=== PATIENT | female | born 1990 | race African-American/Black ===

== ENCOUNTER 2018-08-06 16:48 | Emergency (ER) | payer SELFPAY ==
[~2018-08-06] VITALS: Ht 170.2 cm; Wt 50.0 kg
[2018-08-06 17:10] VITALS: Ht 170.2 cm; Wt 50.0 kg
[2018-08-06] MEDS ORDERED: LORAZEPAM 2 MG INJ IM STA (17:25)
--- NOTE | 2018-08-06 18:21 | ERD ---
ER Documentation Chief Complaint Chief Complaint PT BIB RA with c/o bizzare behavior, possible mushroom use this weekend. HPI 27-year-old woman brought in by EMS from home for bizarre behavior, mutism, and not responding appropriately to family members' questions. It seems patient used mushrooms a few days ago but she also has a history of psychiatric illness. She has had no trauma, no fevers or chills, no vomiting. Patient transported here by EMS without further complications. ROS All systems reviewed and are negative except as per history of present illness. PMhx/Soc Medical and Surgical Hx: Unable to obtain Hx Alcohol Use: No Hx Substance Use: Yes (mushrooms) Hx Tobacco Use: No Smoking Status: Never smoker Physical Exam Vitals Vital Signs Date Temp Pulse Resp B/P (MAP) Pulse Ox O2 O2 Flow FiO2 Time Delivery Rate 08/06/18 97.9 98 22 104/77 100 17:10 (86) Physical Exam Const: Well-developed will nourished woman, nontoxic in appearance, afebrile Head: Atraumatic Eyes: Normal Conjunctiva ENT: Normal External Ears, Nose and Mouth. Neck: Full range of motion. No meningismus. Resp: Clear to auscultation bilaterally Cardio: Regular rate and rhythm, no murmurs Abd: Soft, non tender, non distended. No guarding or rigidity, no masses Skin: No petechiae or rashes Back: No midline or flank tenderness Ext: No cyanosis, or edema Neur: Patient is alert and awake and moves all her extremities without difficulty, eyes are open but she exhibits mutism and is refusing to answer questions Psych: Flat affect Result Diagram: 08/06/18 1734 08/06/18 1734 Results 24 hrs Laboratory Tests Test 08/06/18 17:34 White Blood Count 6.1 10^3/ul Red Blood Count 4.36 10^6/ul Hemoglobin 13.0 g/dl Hematocrit 39.7 % Mean Corpuscular Volume 91.1 fl Mean Corpuscular Hemoglobin 29.8 pg Mean Corpuscular Hemoglobin Concent 32.7 g/dl Red Cell Distribution Width 12.2 % Platelet Count 260 10^3/UL Mean Platelet Volume 10.3 fl Immature Granulocytes % 0.200 % Neutrophils % 52.6 % Lymphocytes % 36.6 % Monocytes % 6.7 % Eosinophils % 2.8 % Basophils % 1.1 % Nucleated Red Blood Cells % 0.0 /100WBC Immature Granulocytes # 0.010 10^3/ul Neutrophils # 3.2 10^3/ul Lymphocytes # 2.2 10^3/ul Monocytes # 0.4 10^3/ul Eosinophils # 0.2 10^3/ul Basophils # 0.1 10^3/ul Nucleated Red Blood Cells # 0.0 10^3/ul Urine Color DORYS Urine Clarity CLEAR Urine pH 5.0 Urine Specific [place] 1.031 Urine Ketones 1+ mg/dL Urine Nitrite NEGATIVE mg/dL Urine Bilirubin NEGATIVE mg/dL Urine Urobilinogen 2+ mg/dL Urine Leukocyte Esterase NEGATIVE Aisha/ul Urine Hemoglobin NEGATIVE mg/dL Urine Glucose NEGATIVE mg/dL Urine Total Protein NEGATIVE mg/dl Sodium Level 144 mmol/L Potassium Level 3.5 mmol/L Chloride Level 107 mmol/L Carbon Dioxide Level 27 mmol/L Anion Gap 10 Blood Urea Nitrogen 14 mg/dl Creatinine 1.16 mg/dl Est Glomerular Filtrat Rate mL/min > 60 mL/min Glucose Level 82 mg/dl Calcium Level 9.9 mg/dl Total Bilirubin 0.4 mg/dl Direct Bilirubin 0.00 mg/dl Indirect Bilirubin 0.4 mg/dl Aspartate Amino Transf (AST/SGOT) 31 IU/L Alanine Aminotransferase (ALT/SGPT) 15 IU/L Alkaline Phosphatase 65 IU/L Total Protein 7.9 g/dl Albumin 4.3 g/dl Globulin 3.60 g/dl Albumin/Globulin Ratio 1.19 Serum HCG, Qualitative NEGATIVE Salicylates Level 2.0 mg/dl Acetaminophen Level < 10.0 ug/ml Ethyl Alcohol Level < 10.0 mg/dl Current Medications Medications Dose Sig/Jero Start Time Status Last (Trade) Ordered Route PRN Stop Time Admin Dose Reason Admin Lorazepam 2 mg ONCE STAT 08/06/18 DC 08/06/18 (Ativan) IM 17:25 08/06/18 17:30 17:27 Procedures/MDM Patient became extremely agitated due to another psychiatric patient near her and they began yelling at each other, patient became verbally combative and to help control her symptoms I administered lorazepam 2 mg IM x1. CBC and electrolytes are normal, liver function test normal, test negative, ethanol level negative. Urine analysis and urine drug screens have also been ordered results are pending I will follow-up. Patient's behavioral symptoms have stabilized while in the department. Patient is medically cleared and appropriate for psychiatric evaluation and work up. No e/o neurologic, toxic, infectious, or metabolic cause. Tele-psychiatry and PET consultations have been ordered their input is pending and discharge planning is pending. Patient may be suffering from known side effects of illicit ketamine, or psilocybin both of which will not show up on urine drug screen testing. Overall though I suspect an underlying psychiatric component Departure Diagnosis: Primary Impression: Drug abuse Additional Impression: Psychiatric illness Condition: CATHRYN Wilson MD August 06, 2018 18:21
--- NOTE | 2018-08-06 20:00 | PSY ---
Date/Time of Note Date/Time of Note DATE: 08/06/18 TIME: 19:44 Psychiatric Subjective Eval Consent Pt consented to telemedicine: Yes Subjective Evaluation Patient location: emergency Chief Complaint: PT BIB RA with c/o bizzare behavior, possible mushroom use this weekend. History of present illness Per RN the patient admitted to doing some "shrooms" over the weekend and was brought into the ED for acting bizarrely and being agitated required four point restraint in the ED. She recently received IM Ativan due to Ativan and, per the RN, is now quite lethargic. She told me she was brought to the ED because "the candy hasn't worn off." She stated she forgot what kind of candy she meant. She denied having any mental health history and denied any recent drug use. She stated she has not had any suicidal or violent thoughts and denied any hallucinations. Past psychiatric history Denied MH history - denied past admissions and denied past suicide attempts. Hospitalization: no Family History Denied. Medical history Problems Medical Problems: (1) Drug abuse Status: Acute (2) Psychiatric illness Status: Acute Substance Abuse Substance use: other (Denied though there is some report of possible mushroom use) Substance abuse history: No Prior substance abuse treatmen: No Social History Marital status: single DPA/Conservatorship: No Occupation/Halfway: Works at a [employer] Psychiatric Objective Eval Mental Status Examination: Appearance: Disheveled Eye Contact: Fair Psychomotor Activity: Normal Behavior: Cooperative Speech: Soft AFFECT: Blunt Mood: Irritable Though Process: Linear Thought Content: Normal Suicidal: No Homicidal: No On 72 hour hold: No Orientation: x3 Cognition: Drowsy Insight: Impared Judgement: Impared Attention Span: Intact Laboratory Results Laboratory Tests Test 08/06/18 17:34 White Blood Count 6.1 10^3/ul Red Blood Count 4.36 10^6/ul Hemoglobin 13.0 g/dl Hematocrit 39.7 % Mean Corpuscular Volume 91.1 fl Mean Corpuscular Hemoglobin 29.8 pg Mean Corpuscular Hemoglobin Concent 32.7 g/dl Red Cell Distribution Width 12.2 % Platelet Count 260 10^3/UL Mean Platelet Volume 10.3 fl Immature Granulocytes % 0.200 % Neutrophils % 52.6 % Lymphocytes % 36.6 % Monocytes % 6.7 % Eosinophils % 2.8 % Basophils % 1.1 % Nucleated Red Blood Cells % 0.0 /100WBC Immature Granulocytes # 0.010 10^3/ul Neutrophils # 3.2 10^3/ul Lymphocytes # 2.2 10^3/ul Monocytes # 0.4 10^3/ul Eosinophils # 0.2 10^3/ul Basophils # 0.1 10^3/ul Nucleated Red Blood Cells # 0.0 10^3/ul Urine Color DORYS Urine Clarity CLEAR Urine pH 5.0 Urine Specific [place] 1.031 Urine Ketones 1+ mg/dL Urine Nitrite NEGATIVE mg/dL Urine Bilirubin NEGATIVE mg/dL Urine Urobilinogen 2+ mg/dL Urine Leukocyte Esterase NEGATIVE Aisha/ul Urine Hemoglobin NEGATIVE mg/dL Urine Glucose NEGATIVE mg/dL Urine Total Protein NEGATIVE mg/dl Sodium Level 144 mmol/L Potassium Level 3.5 mmol/L Chloride Level 107 mmol/L Carbon Dioxide Level 27 mmol/L Anion Gap 10 Blood Urea Nitrogen 14 mg/dl Creatinine 1.16 mg/dl Est Glomerular Filtrat Rate mL/min > 60 mL/min Glucose Level 82 mg/dl Calcium Level 9.9 mg/dl Total Bilirubin 0.4 mg/dl Direct Bilirubin 0.00 mg/dl Indirect Bilirubin 0.4 mg/dl Aspartate Amino Transf (AST/SGOT) 31 IU/L Alanine Aminotransferase (ALT/SGPT) 15 IU/L Alkaline Phosphatase 65 IU/L Total Protein 7.9 g/dl Albumin 4.3 g/dl Globulin 3.60 g/dl Albumin/Globulin Ratio 1.19 Serum HCG, Qualitative NEGATIVE Salicylates Level 2.0 mg/dl Urine Opiates Screen NEGATIVE Acetaminophen Level < 10.0 ug/ml Urine Barbiturates NEGATIVE Urine Amphetamines Screen NEGATIVE Urine Benzodiazepines Screen NEGATIVE Urine Cocaine Screen NEGATIVE Urine Cannabinoids NEGATIVE Ethyl Alcohol Level < 10.0 mg/dl Assessment and Plan Recommendation/Plan Discharge Disposition: Other (Other) Legal Status: Place involuntary hold Other Individual was agitated on presentation possibly due to substance use not detectable in drug screens and received IM Ativan. She was somewhat sedated though denied symptoms and did not appear grossly psychotic. Recommend overnight observation in the ED. If she clears by the morning a hospitalization can be avoided. If she remains agitated and/or bizarre then recommend pursuing psychiatric admission as 5150 DTO. JORGE LOYD MD August 06, 2018 19:54
--- NOTE | 2018-08-06 21:53 | PSY ---
Date/Time of Note Date/Time of Note DATE: 08/06/18 TIME: 21:52 Psychiatric Subjective Eval Consent Pt consented to telemedicine: Yes Subjective Evaluation Patient location: emergency Chief Complaint: PT BIB RA with c/o bizzare behavior, possible mushroom use this weekend. Hospitalization: no Medical history Problems Medical Problems: (1) Drug abuse Status: Acute (2) Psychiatric illness Status: Acute Social History Marital status: single DPA/Conservatorship: No Occupation/Half-Way: Works at a [employer] Psychiatric Objective Eval Mental Status Examination: Laboratory Results Laboratory Tests Test 08/06/18 17:34 White Blood Count 6.1 10^3/ul Red Blood Count 4.36 10^6/ul Hemoglobin 13.0 g/dl Hematocrit 39.7 % Mean Corpuscular Volume 91.1 fl Mean Corpuscular Hemoglobin 29.8 pg Mean Corpuscular Hemoglobin Concent 32.7 g/dl Red Cell Distribution Width 12.2 % Platelet Count 260 10^3/UL Mean Platelet Volume 10.3 fl Immature Granulocytes % 0.200 % Neutrophils % 52.6 % Lymphocytes % 36.6 % Monocytes % 6.7 % Eosinophils % 2.8 % Basophils % 1.1 % Nucleated Red Blood Cells % 0.0 /100WBC Immature Granulocytes # 0.010 10^3/ul Neutrophils # 3.2 10^3/ul Lymphocytes # 2.2 10^3/ul Monocytes # 0.4 10^3/ul Eosinophils # 0.2 10^3/ul Basophils # 0.1 10^3/ul Nucleated Red Blood Cells # 0.0 10^3/ul Urine Color DORYS Urine Clarity CLEAR Urine pH 5.0 Urine Specific [place] 1.031 Urine Ketones 1+ mg/dL Urine Nitrite NEGATIVE mg/dL Urine Bilirubin NEGATIVE mg/dL Urine Urobilinogen 2+ mg/dL Urine Leukocyte Esterase NEGATIVE Aisha/ul Urine Hemoglobin NEGATIVE mg/dL Urine Glucose NEGATIVE mg/dL Urine Total Protein NEGATIVE mg/dl Sodium Level 144 mmol/L Potassium Level 3.5 mmol/L Chloride Level 107 mmol/L Carbon Dioxide Level 27 mmol/L Anion Gap 10 Blood Urea Nitrogen 14 mg/dl Creatinine 1.16 mg/dl Est Glomerular Filtrat Rate mL/min > 60 mL/min Glucose Level 82 mg/dl Calcium Level 9.9 mg/dl Total Bilirubin 0.4 mg/dl Direct Bilirubin 0.00 mg/dl Indirect Bilirubin 0.4 mg/dl Aspartate Amino Transf (AST/SGOT) 31 IU/L Alanine Aminotransferase (ALT/SGPT) 15 IU/L Alkaline Phosphatase 65 IU/L Total Protein 7.9 g/dl Albumin 4.3 g/dl Globulin 3.60 g/dl Albumin/Globulin Ratio 1.19 Serum HCG, Qualitative NEGATIVE Salicylates Level 2.0 mg/dl Urine Opiates Screen NEGATIVE Acetaminophen Level < 10.0 ug/ml Urine Barbiturates NEGATIVE Urine Amphetamines Screen NEGATIVE Urine Benzodiazepines Screen NEGATIVE Urine Cocaine Screen NEGATIVE Urine Cannabinoids NEGATIVE Ethyl Alcohol Level < 10.0 mg/dl Assessment and Plan Recommendation/Plan Discharge Disposition: Psychiatric inpatient Legal Status: Place involuntary hold Assessment Additional comments: IDENTIFYING INFORMATION: 27 year old Female patient who is currently located at the hospital and for whom psychiatric consultation was requested. SOURCES OF INFORMATION: The patient who appears to be somewhat reliable and the medical records; the nursing staff. I asked to call her friends, but she reports that her phone has no battery and she does not have the number. CHIEF COMPLAINT: "I was playing with my friends". HISTORY OF PRESENT ILLNESS: The patient was interviewed via telemedicine in the presence of and under the supervision of nursing staff of the hospital. The consent to conducting this interview via telemedicine was obtained by the nursing staff at the hospital. CRISELDA Robertson reports that the patient presented with bizarre behavior in the context of using mushrooms. Pt was evaluated by Dr. Bray. Is not on a 5150. the patient was evaluated on August 06, 2018 by psychiatrist, Dr. Bray. The patient presented with bizarre behavior in the context of using hallucinogenic mushrooms. Had to be restrained, and was agitated. Overnight observation of the emergency room was recommended. The patient reports was playing-fight at home with her friends and they called the police. She reports that she would not watch a movie with them, they were trying to force me to sit down. The patient denies having AH, VH, SI, HI. The patient denies using alcohol heavily or regularly. Denies having used any mushrooms. The patient denies using any other substances. 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 The patient reports having a history of no past suicide attempts. Past medication trials: denies. PAST MEDICAL HISTORY: none. CURRENT MEDICATIONS: xyzel. ALLERGIES TO MEDICATIONS: NKDA. LABORATORY TESTS: CBC unremarkable, CMP with creatinine of 1.16, test negative, UDS negative, no alcohol detected. SOCIAL HISTORY: lives alone, single, no kids, employed, graduated from high school and college, no access to firearms. REVIEW OF SYSTEMS: Constitutional (e.g., fever, weight loss): negative; Eyes, Ears, Nose, Mouth, Throat: negative; Cardiovascular: negative; Respiratory: negative; Gastrointestinal: negative; Genitourinary: negative; Musculoskeletal: negative; Integumentary (skin and/or breast): negative; Neurological: negative; Psychiatric: as per HPI; Endocrine: negative; Hematologic/Lymphatic: negative; Allergic/Immunologic: negative. MENTAL STATUS EXAMINATION: General Appearance and Behavior: Calm, cooperative with the interview, pleasant with the current interviewer, makes fair eye contact, fairly groomed, no abnormal movements noted, Speech: Regular rate, regular rhythm, normal latency, normal volume, somewhat decreased amount, Flow of thought: sequential, logical, goal-directed at times, illogical at times, Content of thought: no auditory hallucinations, no visual hallucinations, + delusions, negative for suicidal ideation; no homicidal ideation, Mood: "fine", Affect: flat, not reactive, Attention: normal based on the interview, Insight: poor, Judgment: poor, Memory: normal based on the interview, Sensorium: alert and oriented to person, place and date. ASSESSMENT: The patient's presentation and history are consistent with the diagnosis of unspecified psychotic disorder. The patient presents with an exacerbation of psychosis in the context of medication compliance, psychosocial stressors. PLAN: - Medication management: Would start risperidone 1 mg by mouth at bedtime. Would start haloperidol 5 mg IM PRN severe agitation q4 hours. Would start diphenhydramine 50 mg IM PRN severe agitation q4 hours. Would start lorazepam 2 mg IM PRN severe agitation q4 hours Will defer to the inpatient psychiatry team for other medication changes. - Labs: No other laboratory tests are needed at this time. - Psychotherapy: Provided supportive psychotherapy and psychoeducation. - Disposition: Would recommend involuntary admission to the inpatient psychiatric unit given the severity of the patient's psychiatric condition and the fact that the patient is an imminent danger to self and/or others so long as the patient has been cleared medically for admission to psychiatry. Inpatient psychiatric admission is at this time the least restrictive environment where the patient can receive the psychiatric care that is needed. Would place on suicide precautions. The patient fulfills criteria for being placed on an involuntary hold for being a danger to others due to a psychiatric disorder. Discussed about the above plan with Dr. Moseley. ROGER KEENAN MD August 06, 2018 21:53
--- NOTE | 2018-08-06 23:33 | QN ---
Documentation Comment Indication: Duration: 4 hr Family History: As documented in the original HPI The patient was observed with serial exams over the above timeframe. The patient continued to be well-appearing and observation continued without complication. All other needs have been met during emergency department stay. Routine psychiatric medications ordered: [Yes, see EMR] Hold status: I discussed the patient with the two tele psychiatrists [Telemetry medicine psychiatry recommended 5150 hold] Placement status: Pending NICK CERDA MD August 06, 2018 23:33
[2018-08-07] MEDS ORDERED: LORAZEPAM 2 MG INJ IM ONE
[2018-08-07] MEDS ORDERED: HALOPERIDOL 5 MG INJ IM ONE
[2018-08-07] MEDS ORDERED: DIPHENHYDRAMINE 50 MG INJ IM ONE
[2018-08-07 17:00] VITALS: BP 104/54; PULSE 60; RESP 16
[2018-08-07] MEDS ORDERED: RISPERIDONE 1 MG TAB PO SCH (21:00)
== END 2018-08-07 18:17 ==
LOC: E/R 16:48
DX: F19.10 Other psychoactive substance abuse, uncomplicated (principal); F99 Mental disorder, not otherwise specified
CPT/HCPCS: 80053; 80307; 81003; 84703; 85025; J1200; J1630; J2060; 36415; 96372

== ENCOUNTER 2019-01-27 02:06 | Emergency (ER) | payer SELFPAY ==
[~2019-01-27] VITALS: Ht 172.7 cm; Wt 56.5 kg
[~2019-01-27 02:06] MED LIST: FLUC150T PO; IBUP-1561 PO
[2019-01-27 02:09] VITALS: BP 111/73; PULSE 62; RESP 16; Ht 172.7 cm; Wt 56.5 kg
== END 2019-01-27 02:47 | disposition home or self-care (01) ==
LOC: FTE 02:06
DX: B37.9 Candidiasis, unspecified (principal)
CPT/HCPCS: 81003; 99283